=== PATIENT | female | born 1965 | race Caucasian/White ===

== ENCOUNTER 2020-10-13 13:38 | Emergency (ER) | payer OTHER ==
[2020-10-13 13:51] VITALS: BP 139/65
--- NOTE | 2020-10-13 14:56 | ED Physician Documentation ---
PD HPI OPHTHO - Stated complaint Stated Complaint: CHEMICAL IN EYE - Chief complaint Chief Complaint: Heent - History obtained from History obtained from: Patient - History of Present Illness Timing - onset: How many hours ago (2) Timing - duration: Hours (2) Timing - details: Abrupt onset Pain level max: 2 Pain level now: 1 Location: Left Quality / character: Burning Associated symptoms: Redness, Tearing, Discharge, FB sensation Contributing factors: No: Wears glasses, Wears contacts Recently seen: Not recently seen - Additional information Additional information: Patient was using bar keepers friend cleaning powder today when it got in her eye. Flushed immediately with water for 15 minutes. She states it feels like there is something still in the eye. Consulted poison control who recommended evaluation in the ER. 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 - Present Medications Home Medications: Ambulatory Orders Medication Instructions Recorded Confirmed oxyCODONE/ACET 5/325 [Percocet 5 1 each PO Q4-6H PRN #15 tablet 04/24/15 mg/325 mg] - Allergies Allergies/Adverse Reactions: Allergies Allergy/AdvReac Type Severity Reaction Status Date / Time No Known Drug Allergies Allergy Verified 10/13/20 13:51 - Social History Does the pt smoke?: Yes Smoking Status: Current every day smoker Does the pt drink ETOH?: Yes Does the pt have substance abuse?: No - Immunizations Immunizations are current?: Yes - POLST Patient has POLST: No PD ED PE NORMAL - Vitals Vital signs reviewed: Yes - General General: Alert and oriented X 3, No acute distress - HEENT HEENT: Moist mucous membranes, Other (Right eye is normal. Left eye has conjunctival injection and tearing. Small amount of discharge. Eyelids everted. No visible foreign bodies. No uptake of fluorescein.) - Neck Neck: Supple, no meningeal sign - Derm Derm: Warm and dry - Neuro Neuro: Alert and oriented X 3 - Psych Psych: Normal mood, Normal affect Results - Vitals Vitals: Vital Signs - 24 hr 10/13/20 13:47 Temperature 36.5 C Heart Rate 76 Respiratory 14 Rate Blood Pressure 139/65 H O2 Saturation 100 Oxygen O2 Source Room air PD MEDICAL DECISION MAKING - ED course Complexity details: considered differential, d/w patient ED course: 55-year-old female with a chemical exposure to the left eye. Proparacaine was instilled and the eye was irrigated again and the urgency department. It is at a normal pH on pH testing. No further foreign body sensation after irrigation. No corneal abrasion. No ulceration. No fluorescein uptake. We will have her continue supportive care and follow-up with her doctor. She does not wear contacts. Patient counseled regarding signs and symptoms for which I believe and urgent re-evaluation would be necessary. Patient with good understanding of and agreement to plan and is comfortable going home at this time This document was made in part using voice recognition software. While efforts are made to proofread this document, sound alike and grammatical errors may occur. Departure - Departure Disposition: 01 Home, Self Care Clinical Impression: Chemical exposure of eye Condition: Good Instructions: ED Chemical Conjunctivitis Follow-Up: Kerline Fernando PA [Primary Care Provider] - Comments: This should improve over the next few hours. Return for recheck tomorrow if you are still having symptoms. Follow-up with your doctor as needed for further care. Discharge Date/Time: 10/13/20 15:09
== END 2020-10-13 15:09 | disposition home or self-care (01) ==
LOC: ED 13:38
DX: H57.12 Ocular pain, left eye (principal); Z77.098 Contact with and (suspected) exposure to other hazardous, chiefly nonmedicinal, chemicals; F17.200 Nicotine dependence, unspecified, uncomplicated
CPT/HCPCS: 99281; 99284

== ENCOUNTER 2020-12-07 19:06 | Emergency (ER) | payer OTHER ==
--- OUTSIDE RECORDS SUMMARY | 2020-12-07 19:08 | EXTERNAL MEDICAL SUMMARY RPT | Continuity of Care Document ---
:1965 Demographics Phone Unavailable Preferred Language Unknown Marital Status Unknown Zoroastrianism Affiliation Unknown Race Unknown Ethnic Group Unknown Author Organization [facility] Address [address] [place] [address] Phone Social History date description facility [phone]
--- OUTSIDE RECORDS SUMMARY | 2020-12-07 19:17 | EXTERNAL MEDICAL SUMMARY RPT | Continuity of Care Document ---
:1965 Demographics Phone Unavailable Preferred Language Unknown Marital Status Unknown Jainism Affiliation Unknown Race Unknown Ethnic Group Unknown Author Organization [facility] Address [address] [id number] Phone Social History date description facility [phone]
[2020-12-07] MEDS ORDERED: IBUPROFEN 600 MG TABLET PO STA (21:26)
[2020-12-07] MEDS ORDERED: cephALEXin 250 MG CAPSULE PO STA (21:26)
--- NOTE | 2020-12-07 21:29 | ED Physician Documentation ---
History of Present Illness - Stated complaint Stated Complaint: LT BREAST PX/REDNESS - Chief complaint Chief Complaint: Wound - Additonal information Additional information: 55-year-old female presents the emergency department for evaluation of acute left breast pain and erythema. She reports that this a.m. she woke up with left breast tenderness. She did go to her primary care provider who did a full breast exam and recommended a mammogram. However since the exam at the primary care office she has developed progressive swelling some mild erythema and increased tenderness of the left breast. She has also had some subjective chills nausea and low-grade temperature elevation of 100.3. Patient is 55 years old has never had a mammogram. No personal or family history of breast cancer. Patient did breast-feed 3 children. She has not had any nipple drainage history of trauma to this breast. Review of Systems Constitutional: reports: Fever, Chills Eyes: reports: Reviewed and negative Ears: reports: Reviewed and negative Throat: denies: Dental pain / toothache, Oral lesions / sores, Sore throat, Swollen tonsils, Swallowed foreign body, Reviewed and negative, Other Cardiac: reports: Reviewed and negative Respiratory: reports: Reviewed and negative GI: reports: Reviewed and negative : reports: Reviewed and negative Skin: reports: Other (left breast swelling, erythema laterally) Neurologic: reports: Generalized weakness PD PAST MEDICAL HISTORY - Past Medical History Past Medical History: Yes - Past Surgical History Past Surgical History: Yes 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 - Present Medications Home Medications: Ambulatory Orders Medication Instructions Recorded Confirmed cephALEXin [Keflex] 500 mg PO Q6H #28 12/07/20 traMADol [Ultram] 50 mg PO Q4-6H PRN 12/07/20 12/07/20 - Allergies Allergies/Adverse Reactions: Allergies Allergy/AdvReac Type Severity Reaction Status Date / Time No Known Drug Allergies Allergy Verified 12/07/20 19:25 - Social History Does the pt smoke?: Yes Smoking Status: Current every day smoker Does the pt drink ETOH?: Yes Does the pt have substance abuse?: No - Immunizations Immunizations are current?: Yes - POLST Patient has POLST: No PD ED PE EXPANDED - General General: Alert, In Pain - Cardiac Cardiac: Regular Rate, Radial strong equal, Pedal strong equal, Cap refill < 2 sec, Prolonged cap refill - Respiratory Respiratory: Clear to ausultation jag. No: Distress, Labored - Abdomen Abdomen: Normal Bowel sounds, Tender to palpation - GCS Eye Opening: Spontaneous Motor: Obeys Commands Verbal: Oriented Total: 15 - Free text exam Free text exam: Left breast with moderate erythema induration tenderness and swelling from the areola superior to about 2:00 and down to about 5:00. no nipple drainage. no axillary LAD. no mass appreciated Results - Vitals Vitals: Vital Signs - 24 hr 12/07/20 19:22 Temperature 37.2 C Heart Rate 85 Respiratory 16 Rate Blood Pressure 115/67 O2 Saturation 100 Oxygen O2 Source Room air - Labs Labs: Laboratory Tests 12/07/20 12/07/20 21:45 21:45 WBC 7.9 RBC 3.96 L Hgb 12.6 Hct 38.4 MCV 97.0 MCH 31.8 H MCHC 32.8 RDW 12.5 Plt Count 225 MPV 9.6 Neut # (Auto) 5.2 Lymph # (Auto) 1.7 Stephenson # (Auto) 0.8 Eos # (Auto) 0.1 Baso # (Auto) 0.0 Absolute Nucleated RBC 0.00 Nucleated RBC % 0.0 Sodium 139 Potassium 3.9 Chloride 104 Carbon Dioxide 27 Anion Gap 8.0 BUN 14 Creatinine 0.6 Estimated GFR (MDRD) 103 Glucose 99 Calcium 9.0 - Rads (name of study) left breast ultrasound Radiology: See rad report, Other (Per orthopedic tech: Hypoechoic areas in the left lateral breast. No focal fluid collection identified.) PD MEDICAL DECISION MAKING - ED course Complexity details: reviewed results, re-evaluated patient, d/w patient ED course: 55-year-old female presents emergency department for evaluation of acute left breast pain redness and swelling that began this morning. She had associated fever and chills this afternoon with a T-max of 100.3. Screening CBC and electrolytes do not reveal any leukocytosis or acute abnormality. On exam she does have redness and swelling laterally of the breast. There is no nipple drainage or discharge. We did do an ultrasound and no localized fluid collection was seen. We will discharge her with a presumptive diagnosis of acute mastitis. A total prescription for 9 days of Keflex was 11. Patient is advised to do warm compress 2-3 times a day as well as ibuprofen for discomfort. Patient understands that as an outpatient when localized infection has resolved she should complete mammogram screening. Departure - Departure Disposition: 01 Home, Self Care Clinical Impression: Mastitis of left breast unrelated to or Condition: Stable Record reviewed to determine appropriate education?: Yes Instructions: ED Breast Infec Follow-Up: Kerline Fernando PA [Primary Care Provider] - Prescriptions: cephALEXin [Keflex] 500 mg PO Q6H #28 Comments: Jenna kearney were seen in the emergency department today for acute left breast swelling and pain with some associated chills, fevers and redness. Your screening labs were unremarkable. We did do an ultrasound of the breast tissue at the bedside. At this time we do not see a fluid collection to suggest abscess formation. I would like you to fill the prescription for the Keflex tomorrow and begin taking as directed 4 times a day for total of 9 days. You are be given a Keflex prepack tonight that we will have a 2-day prescription. I am also prescribing you a prepack of hydrocodone to help with pain and discomfort. Do not drive if taking this. Please place a warm compress over the left breast for 10 minutes 3 times a day. When that the infection resolves I would like you to ensure that you do have a mammogram screening completed. At your age mammogram is important to evaluate for breast cancer.
[2020-12-07 21:51] LABS: BASOPHILS % (AUTO) 0.5 %; EOSINOPHILS # (AUTO) 0.1 10^3/uL (0.0-0.7); HCT - HEMATOCRIT 38.4 % (37.0-47.0); HGB - HEMOGLOBIN 12.6 g/dL (12.0-16.0); LYMPHOCYTES # (AUTO) 1.7 10^3/uL (1.5-3.5); MEAN CORPUSCULAR HEMOGLOBIN 31.8 pg (27.0-31.0); MEAN CORPUSCULAR HGB CONC 32.8 g/dL (32.0-36.0); MEAN PLATELET VOLUME 9.6 fL (7.9-10.8); MONOCYTES # (AUTO) 0.8 10^3/uL (0.0-1.0); MONOCYTES % (AUTO) 9.9 %; NEUTROPHILS # (AUTO) 5.2 10^3/uL (1.5-6.6); NEUTROPHILS % (AUTO) 66.5 %; PLT - PLATELET COUNT 225 10^3/uL (130-450); RED BLOOD COUNT 3.96 10^6/uL (4.20-5.40); RED CELL DISTRIBUTION WIDTH 12.5 % (12.0-15.0); WHITE BLOOD COUNT 7.9 x10^3/uL (4.8-10.8)
[2020-12-07 22:02] LABS: CREATININE 0.6 mg/dL (0.4-1.0); POTASSIUM 3.9 mmol/L (3.5-5.0)
[2020-12-07] MEDS ORDERED: CEPHALEXIN 250 MG Prepack 8 CAP BOTTLE PO STA (22:28)
[2020-12-07] MEDS ORDERED: HYDROcod/ACET 5/325 Prepack 4 PO STA (22:29)
[2020-12-07 22:45] VITALS: BP 118/72
--- NOTE | 2020-12-08 08:50 | Ultrasound Report ---
PROCEDURE: Breast Unilateral Complete INDICATIONS: acute swelling, erythema; ? mastitis vs abscess TECHNIQUE: Real-time focused scanning was performed of the left breast(s), with image documentation and color Do ppler interrogation. COMPARISON: None. FINDINGS: Edema and hyperemic appearance of the entire breast. There is heterogeneous hypoechoic focus with are as of anechoic appearance measuring 2.8 x 2.1 x 2.0 cm and 1:00 and 2:00 position, 1 cm from the nipp le. There are dilated ducts, with periductal hyperemia. IMPRESSION: Diffuse mastitis. Ill-defined hypoechoic/anechoic region measuring up to 2.8 cm seen at the 1-2:00 po sition 1 cm from the nipple. A discrete abscess is not sonographically identified. Recommend follow-u p to document resolution after treatment and exclude underlying malignancy. Ductal ectasia with adjacent mastitis. BIRADS 3. Ultrasound, and if necessary mammographic, follow up recommended in 6 weeks after treatment . Findings are concordant with the preliminary study interpretation provided at the time of the study . Reviewed by: Romero Flores MD on 12/08/2020 8:48 AM PDT Approved by: Romero Flores MD on 12/08/2020 8:48 AM PDT Station ID: [id number]
== END 2020-12-07 22:43 | disposition home or self-care (01) ==
LOC: ED 19:06
DX: N61.0 Mastitis without abscess (principal); F17.200 Nicotine dependence, unspecified, uncomplicated
CPT/HCPCS: 36415; 76641; 80048; 85025; 99284; A9270

== ENCOUNTER 2021-02-06 11:13 | Outpatient (CLI) | payer OTHER ==
--- NOTE | 2021-02-07 12:21 | Mammography Report ---
BILATERAL DIGITAL DIAGNOSTIC MAMMOGRAM 3D/2D: 02/06/2021 CLINICAL: Diffuse left breast pain. Diffuse left breast pain. Follow-up left breast mastitis. Baselin e exam. Comparison is made to exam dated: 12/07/2020 ultrasound - [facility]. There are sc attered fibroglandular elements in both breasts. There is a possible irregular high density mass with an obscured, spiculated, and indistinct margin i n the left breast at 1 o'clock anterior depth. There is architectural distortion associated with the mass. No other significant masses, calcifications, or other findings are seen in either breast. IMPRESSION: INCOMPLETE: NEEDS ADDITIONAL IMAGING EVALUATION The possible irregular high density mass in the left breast is indeterminate. An ultrasound is recom mended. This exam was interpreted at Station ID: [id number]. NOTE: For mammograms, a report in lay terms will be sent to the patient. Approximately 15% of breast malignancies will not be visualized mammographically. In the management of a palpable breast mass, a negative mammogram must not discourage biopsy of a clinically suspicious lesion. Electronically Signed By: Jarvis Mukherjee M.D. jr/:02/06/2021 13:22:17 ACR BI-RADS Category 0: Incomplete 3340F PARENCHYMAL PATTERN: (A) - The breast(s) demonstrate(s) scattered fibroglandular densities. BI-RADS CATEGORY: (0) - 0 Ultrasound [id number] Immediate follow-up LATERALITY: (B)
--- NOTE | 2021-02-07 12:21 | Ultrasound Report ---
LIMITED ULTRASOUND OF LEFT BREAST: 02/06/2021 CLINICAL: Patient returns today to evaluate an architectural distortion in the left breast. Palpable left breast lump. Comparison is made to exams dated: 02/06/2021 mammogram and 12/07/[address] - [facility]. Color flow and real-time ultrasound of the left breast 11-2 o'clock region were performed. Conroy sca le images of the real-time examination were reviewed. There is an irregular solid mass in the left breast at 12 o'clock middle depth. This irregular solid mass is hypoechoic but of mixed echogenicity with no posterior acoustic shadowing or enhancement. C olor flow imaging demonstrates that there is increased vascularity. IMPRESSION: SUSPICIOUS OF MALIGNANCY The irregular solid mass in the left breast is suspicious of malignancy. An ultrasound guided biopsy is recommended. It is important to note that the mass seen on ultrasound may not precisely correlat e in position with the suspicious architectural distortion seen on mammogram. The post-biopsy images should be scrutinized to ensure that the biopsy clip/marker corresponds on position to the architectu ral distortion, otherwise a separate stereotactic biopsy may be needed. This exam was interpreted at Station ID: [id number]. Electronically Signed By: Jarvis Mukherjee M.D. jr/:02/06/2021 13:27:37 Ultrasound BI-RADS: 4 Suspicious for malignancy BI-RADS CATEGORY: (4) - 4 None [id number] Immediate follow-up LATERALITY: ()
== END 2021-02-06 11:14 | disposition home or self-care (01) ==
LOC: DI 11:13
PROVIDERS: ATTEND Nurse Practitioner Family
DX: N64.4 Mastodynia (principal); N63.21 Unspecified lump in the left breast, upper outer quadrant

== ENCOUNTER 2021-02-09 12:40 | Outpatient (CLI) | payer OTHER ==
[2021-02-09] MEDS ORDERED: LIDOCAINE MPF 1%-EPI 1:200000 30 ML VIAL ONE (12:45)
[2021-02-09] MEDS ORDERED: BUFFERED LIDOCAINE 10 ML SYRINGE ONE (12:45)
--- NOTE | 2021-02-09 16:27 | Ultrasound Report ---
PROCEDURE: Breast Unilateral Limited INDICATIONS: ABNORMAL MAMMO LT BREAST TECHNIQUE: Real-time focused scanning was performed of the left breast(s), with image documentation. COMPARISON: 02/06/2021 diagnostic breast ultrasound. FINDINGS: Previously identified lesion in the left breast is not identified in the current study. Re al-time imaging from the 12 to 2:00 position left breast demonstrated prominent ducts, soft tissue ed cirilo and increased vascularity highly suggestive of mastitis. Patient reported tenderness in the regio n of the sonographic abnormality. IMPRESSION: 1. Previously identified lesion in the left breast not identified in the current study. Ultrasound gu ided biopsy was canceled. 2. Inflammation and increased vascularity with tenderness noted in the 12-2:00 position of the left b reast changes highly suspicious for mastitis. No abscess identified. 3. Following appropriate therapy for mastitis and given lack of definite sonographic abnormality in t he current study, stereotactic biopsy of area of architectural distortion in the left breast should b e performed. Findings and recommendations discussed with patient's provider Carmen Aceves and with the patient o n 02/09/2021. BIRADS: 4 Reviewed by: Esther Hoffmann MD, PhD on 02/09/2021 4:25 PM PDT Approved by: Esther Hoffmann MD, PhD on 02/09/2021 4:25 PM PDT Station ID: [id number]
== END 2021-02-09 12:41 | disposition home or self-care (01) ==
LOC: DI 12:40
PROVIDERS: ATTEND Physician Assistant
DX: R92.8 Other abnormal and inconclusive findings on diagnostic imaging of breast (principal)

== ENCOUNTER 2021-05-19 16:47 | Outpatient (CLI) | payer OTHER ==
[2021-05-19 20:25] LABS: BASOPHILS % (AUTO) 0.7 %; EOSINOPHILS # (AUTO) 0.1 10^3/uL (0.0-0.7); EOSINOPHILS % (AUTO) 2.3 %; HCT - HEMATOCRIT 41.5 % (37.0-47.0); HGB - HEMOGLOBIN 13.1 g/dL (12.0-16.0); LYMPHOCYTES # (AUTO) 2.7 10^3/uL (1.5-3.5); LYMPHOCYTES % (AUTO) 47.3 %; MEAN CORPUSCULAR HEMOGLOBIN 31.5 pg (27.0-31.0); MEAN CORPUSCULAR HGB CONC 31.6 g/dL (32.0-36.0); MEAN CORPUSCULAR VOLUME 99.8 fL (81.0-99.0); MEAN PLATELET VOLUME 10.1 fL (7.9-10.8); MONOCYTES # (AUTO) 0.5 10^3/uL (0.0-1.0); MONOCYTES % (AUTO) 7.9 %; NEUTROPHILS # (AUTO) 2.4 10^3/uL (1.5-6.6); NEUTROPHILS % (AUTO) 41.6 %; PLT - PLATELET COUNT 296 10^3/uL (130-450); RED BLOOD COUNT 4.16 10^6/uL (4.20-5.40); RED CELL DISTRIBUTION WIDTH 12.3 % (12.0-15.0); WHITE BLOOD COUNT 5.7 x10^3/uL (4.8-10.8)
[2021-05-19 20:30] LABS: ALBUMIN 4.9 g/dL (3.2-5.5); ALBUMIN/GLOBULIN RATIO 2.3 (1.0-2.2); BILIRUBIN,TOTAL 0.7 mg/dL (0.2-1.0); CREATININE 0.7 mg/dL (0.4-1.0); POTASSIUM 4.5 mmol/L (3.5-5.0)
== END 2021-05-19 16:48 | disposition home or self-care (01) ==
LOC: LAB.S 16:47
PROVIDERS: ATTEND Physician Assistant
DX: Z01.812 Encounter for preprocedural laboratory examination (principal)
CPT/HCPCS: 36415; 80053; 85025

== ENCOUNTER 2021-06-03 21:34 | Emergency (ER) | payer OTHER ==
[2021-06-03] MEDS ORDERED: oxyCODONE 5 MG TABLET PO STA (21:54)
[2021-06-03 23:53] LABS: BASOPHILS # (AUTO) 0.1 10^3/uL (0.0-0.1); BASOPHILS % (AUTO) 0.5 %; EOSINOPHILS # (AUTO) 0.1 10^3/uL (0.0-0.7); EOSINOPHILS % (AUTO) 0.6 %; HCT - HEMATOCRIT 38.7 % (37.0-47.0); HGB - HEMOGLOBIN 12.7 g/dL (12.0-16.0); LYMPHOCYTES # (AUTO) 1.2 10^3/uL (1.5-3.5); LYMPHOCYTES % (AUTO) 10.9 %; MEAN CORPUSCULAR HEMOGLOBIN 32.3 pg (27.0-31.0); MEAN CORPUSCULAR HGB CONC 32.8 g/dL (32.0-36.0); MEAN CORPUSCULAR VOLUME 98.5 fL (81.0-99.0); MEAN PLATELET VOLUME 9.1 fL (7.9-10.8); MONOCYTES # (AUTO) 1.2 10^3/uL (0.0-1.0); MONOCYTES % (AUTO) 11.1 %; NEUTROPHILS # (AUTO) 8.4 10^3/uL (1.5-6.6); NEUTROPHILS % (AUTO) 76.5 %; PLT - PLATELET COUNT 290 10^3/uL (130-450); RED BLOOD COUNT 3.93 10^6/uL (4.20-5.40); RED CELL DISTRIBUTION WIDTH 12.2 % (12.0-15.0)
--- NOTE | 2021-06-04 | Ultrasound Report ---
PROCEDURE: Breast Unilateral Complete INDICATIONS: left breast pain, swelling TECHNIQUE: Real-time focused scanning was performed of the left breast(s), with image documentation and color Do ppler interrogation. COMPARISON: None. FINDINGS: Drainage tube noted in the soft tissues of the left breast compatible with recent mastectomy. There i s edema in the region of the mastectomy. No abscess identified. IMPRESSION: Soft tissue edema in the region of left breast mastectomy which could be related to recent surgery or infectious cellulitis. No abscess. BIRADS 1 Reviewed by: Esther Hoffmann MD, PhD on 06/03/2021 11:59 PM PDT Approved by: Esther Hoffmann MD, PhD on 06/03/2021 11:59 PM PDT Station ID: [id number]
--- NOTE | 2021-06-04 00:51 | ED Physician Documentation ---
History of Present Illness - Stated complaint Stated Complaint: POST OP PX - Chief complaint Chief Complaint: General - History obtained from History obtained from: Patient - Additonal information Additional information: 48-year-old woman presents status post L mastectomy 8 days ago at [facility] [address] with [address] Johnson. Patient is having pain to the breast and some increased swelling. denies fevers. ANDREI drain put out 80cc today serous fluid today which is c/w prior output. 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 - Present Medications Home Medications: Ambulatory Orders Medication Instructions Recorded Confirmed Oxycodone HCl/Acetaminophen 1 each PO Q4H PRN #10 tablet 06/04/21 [Percocet 10-325 mg Tablet] cephALEXin [Keflex] 500 mg PO Q6H #28 06/04/21 - Allergies Allergies/Adverse Reactions: Allergies Allergy/AdvReac Type Severity Reaction Status Date / Time No Known Drug Allergies Allergy Verified 06/04/21 08:19 - Social History Does the pt smoke?: Yes Smoking Status: Former smoker Does the pt drink ETOH?: No Does the pt have substance abuse?: No - Immunizations Immunizations are current?: Yes - POLST Patient has POLST: No PD ED PE NORMAL - Vitals Vital signs reviewed: Yes - General General: Alert and oriented X 3, No acute distress, Well developed/nourished - HEENT HEENT: Atraumatic, PERRL, EOMI - Neck Neck: Supple, no meningeal sign - Cardiac Cardiac: RRR - Respiratory Respiratory: No respiratory distress, Clear bilaterally - Abdomen Abdomen: Non tender, Non distended - Derm Derm: Other (L breast with mild swelling to 2 oclock position. ANDREI drain with serous drainage. no cellulitis. wound site is healing well. bandage clean. ) Results - Vitals Vitals: Oxygen O2 Source Room air - Labs Labs: Microbiology 06/03/21 00:00 Blood Culture - Preliminary Blood NO GROWTH AFTER 1 DAY 06/03/21 23:38 Blood Culture - Preliminary Blood NO GROWTH AFTER 1 DAY 06/04/21 01:25 Wound Culture - Preliminary Breast - Left Laboratory Tests 06/03/21 06/03/21 06/04/21 23:38 23:38 01:25 WBC 11.0 H RBC 3.93 L Hgb 12.7 Hct 38.7 MCV 98.5 MCH 32.3 H MCHC 32.8 RDW 12.2 Plt Count 290 MPV 9.1 Neut # (Auto) 8.4 H Lymph # (Auto) 1.2 L Rhea # (Auto) 1.2 H Eos # (Auto) 0.1 Baso # (Auto) 0.1 Absolute Nucleated RBC 0.00 Nucleated RBC % 0.0 Lactic Acid 0.7 Fluid Source BREAST SEROUS FLUID Fluid Color STRAW Fluid Clarity CLOUDY Fluid WBC 3214 Fluid RBC 88440 Fluid Neutrophils % 43 Fluid Lymphocytes % 53 Fluid Monocytes % 4 PD MEDICAL DECISION MAKING - ED course ED course: d/w Dr. [place], inhalation therapist surgeon and partner of Dr. Johnson in regards to pain. Given her lack of fever, normal lactic acid, and only mild leukocytosis, patient has low likelihood of wound site infection at this time but we will give short term course of keflex as a precaution. Surgeon advised to keep wound drain in. She will be given a follow up appointment for this week. They will call tomorrow to schedule with her. I d/w the patient and provided strict return precautions. Departure - Departure Disposition: 01 Home, Self Care Clinical Impression: Visit for wound check, Post-mastectomy pain Condition: Good Instructions: ED Post Op Pain Prescriptions: cephALEXin [Keflex] 500 mg PO Q6H #28 Oxycodone HCl/Acetaminophen [Percocet 10-325 mg Tablet] 1 each PO Q4H PRN #10 tablet PRN Reason: Pain Comments: You were seen in the emergency department for a wound check. You likely do not have an infection but we are placing you on antibiotics per surgeon recommendations until you can be seen in clinic for a wound check. Please return to the emergency department if you are unable to get in to see your surgeon. They should be calling tomororw to schedule an appointment with you. Return also if you have any fever, new or worsening symptoms or other concerns. Apply warm compresses to the affected area as tolerated. Discharge Date/Time: 06/04/21 01:33
[2021-06-04] MEDS ORDERED: oxyCODONE/ACET 5/325 Prepack 4 PO STA (01:13)
[2021-06-04 01:33] VITALS: BP 103/60
[2021-06-04 01:52] LABS: CC,BF RBC 17000 /mm^3; CC,BF WBC 3214 /mm^3
[2021-06-04 01:53] LABS: BF CLARITY CLOUDY; BF COLOR STRAW; BF SOURCE BREAST SEROUS FLUID
[2021-06-04 02:15] LABS: LYMPHOCYTES %,BODY FLUID 53 %; MONOCYTES %,BODY FLUID 4 %; NEUTROPHILS %, BF 43 %
== END 2021-06-04 01:33 | disposition home or self-care (01) ==
LOC: ED 21:34
DX: G89.18 Other acute postprocedural pain (principal); Z90.12 Acquired absence of left breast and nipple; Z48.00 Encounter for change or removal of nonsurgical wound dressing; Z43.8 Encounter for attention to other artificial openings
CPT/HCPCS: 36415; 76641; 83605; 85025; 87040; 87070; 87181; 87205; 89051; 99283; 99284; A9270

== ENCOUNTER 2021-06-04 08:11 | Emergency (ER) | payer OTHER ==
[2021-06-04] MEDS ORDERED: KETOROLAC 30 MG/ML VIAL IVP STA (08:56)
[2021-06-04] MEDS ORDERED: HYDROmorphone 1 MG/ML CARPUJECT IVP STA (08:56)
[2021-06-04] MEDS ORDERED: ceFAZolin 1 GM in SODIUM CHLORIDE 0.9% MINIBAG 100 ML IV STA (08:57)
--- NOTE | 2021-06-04 09:51 | ED Physician Documentation ---
History of Present Illness - Stated complaint Stated Complaint: FEVER/NAUSEA - Chief complaint Chief Complaint: Fever - History obtained from History obtained from: Patient - Additonal information Additional information: Patient returns emergency department chief complaint of fever after being seen here last night for breast redness and pain. The patient is 9 days status post left mastectomy, and has a ANDREI drain in place. She began to notice redness along the drain track a couple of days ago, though this did not extend all the way to the exit site. When she was seen yesterday, she had a slightly elevated white count, but no fever. The case was discussed by the emergency physician with the partner of the patient surgeon, who did not feel the patient was likely to have infection. However, as a precaution, Keflex was prescribed. Patient states she has not yet been able to pecan picker the Keflex, so has not had any antibiotics, as she states she was not given a dose yesterday in the ED. She states that the pain feels little worse and the redness looks a little worse than it did last night. She states that this morning is the first time she has had a fever throughout the process. No other complaints at this time. No drainage from the wound. No change in the appearance of the fluid in the drain bulb. Review of Systems Ten Systems: 10 systems reviewed and negative Constitutional: reports: Reviewed and negative Eyes: reports: Reviewed and negative Ears: reports: Reviewed and negative Nose: reports: Reviewed and negative Throat: reports: Reviewed and negative Cardiac: reports: Reviewed and negative Respiratory: reports: Reviewed and negative GI: reports: Reviewed and negative : reports: Reviewed and negative Skin: reports: Other (Redness, tenderness) Musculoskeletal: reports: Reviewed and negative Neurologic: reports: Reviewed and negative Psychiatric: reports: Reviewed and negative Endocrine: reports: Reviewed and negative Immunocompromised: reports: Reviewed and negative PD PAST MEDICAL HISTORY - Past Surgical History Past Surgical History: Yes 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 - Present Medications Home Medications: Ambulatory Orders Medication Instructions Recorded Confirmed Oxycodone HCl/Acetaminophen 1 each PO Q4H PRN #10 tablet 06/04/21 [Percocet 10-325 mg Tablet] cephALEXin [Keflex] 500 mg PO Q6H #28 06/04/21 - Allergies Allergies/Adverse Reactions: Allergies Allergy/AdvReac Type Severity Reaction Status Date / Time No Known Drug Allergies Allergy Verified 06/04/21 08:19 - Social History Does the pt smoke?: Yes Smoking Status: Former smoker Does the pt drink ETOH?: No Does the pt have substance abuse?: No - Immunizations Immunizations are current?: Yes - POLST Patient has POLST: No PD ED PE NORMAL - Vitals Vital signs reviewed: Yes - General General: Alert and oriented X 3, No acute distress, Well developed/nourished - HEENT HEENT: Atraumatic, PERRL, EOMI, Moist mucous membranes - Neck Neck: Supple, no meningeal sign - Cardiac Cardiac: RRR, No murmur, Strong equal pulses - Respiratory Respiratory: No respiratory distress, Clear bilaterally - Derm Derm: Warm and dry, Other (Surgical incisions on left breast clean dry and intact. ANDREI drain in place with blood-tinged, Clear fluid with sediment noted. No erythema at drain exit site. Drain palpable into her superior chest, at which point redness noted over the drain track without induration. 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 She had a fluctuant collection that was not indurated, and I was not certain whether this was a serous collection or infectious. The patient was given an IV dose of Ancef in the emergency department. She was also given Zofran for nausea and a dose of Dilaudid and Toradol. I have advised the patient to call her surgeon's office first thing tomorrow morning, which is Saturday. The patient has an appointment in 5 days, but I have discussed with her that I do not feel she should wait that long to be seen. She will pecan picker her Keflex immediately after this visit. Departure - Departure Disposition: 01 Home, Self Care Clinical Impression: Post-operative infection Qualifiers: Encounter type: initial encounter Postoperative infection type: unspecified type Qualified Code(s): T81.40XA - Infection following a procedure, unspecified, initial encounter Condition: Stable Instructions: ED Wound Infec After Surgery Comments: Please go straight to the pharmacy and pecan picker your antibiotics. You have been given an IV dose in the emergency department, as well as medication for pain and nausea. It is very important that you take all your doses of antibiotics today and every day until the course is complete. Please call your surgeon's office first thing in the morning to see if you can get an appointment in the next couple of days for a check. You may take ibuprofen 600mg every 6 hours, and Tylenol 650 mg every 4 hours, as needed for fever.
[2021-06-04] MEDS ORDERED: ONDANSETRON 4 MG/2 ML VIAL IVP STA (09:55)
[2021-06-04 10:42] VITALS: BP 107/54
== END 2021-06-04 11:04 | disposition home or self-care (01) ==
LOC: ED 08:11
DX: T81.49XA Infection following a procedure, other surgical site, initial encounter (principal); Y83.8 Other surgical procedures as the cause of abnormal reaction of the patient, or of later complication, without mention of misadventure at the time of the procedure; Z87.891 Personal history of nicotine dependence
CPT/HCPCS: 96365; 96375; 99284; J1170

== ENCOUNTER 2021-07-23 08:00 | Outpatient (CLI) | payer OTHER | END 2021-07-23 23:59 | disposition home or self-care (01) | LOC: LAB.S 08:00 | PROVIDERS: ATTEND Physician Assistant | DX: J06.9 Acute upper respiratory infection, unspecified (principal); Z20.822 Contact with and (suspected) exposure to COVID-19 ==

== ENCOUNTER 2021-12-29 13:56 | Outpatient (CLI) | payer OTHER ==
--- NOTE | 2021-12-29 15:41 | XRAY Report ---
PROCEDURE: Ankle 3 View RT INDICATIONS: PAIN IN RIGHT ANKLE AND JOINTS OF RIGHT FOOT TECHNIQUE: 3 views of the ankle were acquired. COMPARISON: None FINDINGS: Bones: No fractures or dislocations. Ankle mortise is normally aligned. No suspicious bony lesions . Soft tissues: No tibiotalar joint effusion. Achilles tendon appears normal. IMPRESSION: Normal right ankle Reviewed by: Bennett Lai on 12/29/2021 3:39 PM PDT Approved by: Bennett Lai on 12/29/2021 3:39 PM PDT Station ID: [id number]
--- NOTE | 2021-12-29 15:42 | XRAY Report ---
PROCEDURE: Ankle 3 View LT INDICATIONS: PAIN IN LEFT ANKLE AND JOINTS OF LEFT FOOT TECHNIQUE: 3 views of the ankle were acquired. COMPARISON: None FINDINGS: Bones: No fractures or dislocations. Ankle mortise is normally aligned. No suspicious bony lesions . Soft tissues: No tibiotalar joint effusion. Achilles tendon appears normal. IMPRESSION: Normal left ankle Reviewed by: Bennett Lai on 12/29/2021 3:40 PM PDT Approved by: Bennett Lai on 12/29/2021 3:40 PM PDT Station ID: [id number]
[2021-12-29 20:06] LABS: BASOPHILS # (AUTO) 0.1 10^3/uL (0.0-0.1); BASOPHILS % (AUTO) 0.9 %; EOSINOPHILS # (AUTO) 0.1 10^3/uL (0.0-0.7); EOSINOPHILS % (AUTO) 1.7 %; HGB - HEMOGLOBIN 13.3 g/dL (12.0-16.0); LYMPHOCYTES # (AUTO) 2.2 10^3/uL (1.5-3.5); LYMPHOCYTES % (AUTO) 38.3 %; MEAN CORPUSCULAR HEMOGLOBIN 31.7 pg (27.0-31.0); MEAN CORPUSCULAR HGB CONC 32.4 g/dL (32.0-36.0); MEAN CORPUSCULAR VOLUME 97.6 fL (81.0-99.0); MEAN PLATELET VOLUME 10.3 fL (7.9-10.8); MONOCYTES # (AUTO) 0.4 10^3/uL (0.0-1.0); MONOCYTES % (AUTO) 6.4 %; NEUTROPHILS % (AUTO) 52.5 %; PLT - PLATELET COUNT 291 10^3/uL (130-450); RED CELL DISTRIBUTION WIDTH 12.5 % (12.0-15.0); WHITE BLOOD COUNT 5.8 x10^3/uL (4.8-10.8)
[2021-12-29 20:30] LABS: ALBUMIN 4.5 g/dL (3.2-5.5); ALBUMIN/GLOBULIN RATIO 1.6 (1.0-2.2); CALCIUM 9.7 mg/dL (8.5-10.3); CREATININE 0.8 mg/dL (0.4-1.0); POTASSIUM 4.5 mmol/L (3.5-5.0); TOTAL PROTEIN 7.4 g/dL (6.7-8.2)
== END 2021-12-29 13:57 | disposition home or self-care (01) ==
LOC: DI.S 13:56
PROVIDERS: ATTEND Physician Assistant
DX: M25.571 Pain in right ankle and joints of right foot (principal); M25.572 Pain in left ankle and joints of left foot; E07.9 Disorder of thyroid, unspecified; R42 Dizziness and giddiness
CPT/HCPCS: 36415; 80053; 84443; 85025; 86800

== ENCOUNTER 2023-04-22 11:21 | Outpatient (CLI) | payer OTHER ==
[2023-04-22 15:11] LABS: BASOPHILS % (AUTO) 0.8 %; EOSINOPHILS # (AUTO) 0.2 10^3/uL (0.0-0.7); HCT - HEMATOCRIT 42.1 % (37.0-47.0); HGB - HEMOGLOBIN 13.6 g/dL (12.0-16.0); LYMPHOCYTES # (AUTO) 1.6 10^3/uL (1.5-3.5); LYMPHOCYTES % (AUTO) 31.7 %; MEAN CORPUSCULAR HEMOGLOBIN 31.6 pg (27.0-31.0); MEAN CORPUSCULAR HGB CONC 32.3 g/dL (32.0-36.0); MEAN CORPUSCULAR VOLUME 97.7 fL (81.0-99.0); MEAN PLATELET VOLUME 10.1 fL (7.9-10.8); MONOCYTES # (AUTO) 0.3 10^3/uL (0.0-1.0); MONOCYTES % (AUTO) 6.6 %; NEUTROPHILS # (AUTO) 2.9 10^3/uL (1.5-6.6); NEUTROPHILS % (AUTO) 57.7 %; PLT - PLATELET COUNT 277 10^3/uL (130-450); RED BLOOD COUNT 4.31 10^6/uL (4.20-5.40); RED CELL DISTRIBUTION WIDTH 12.9 % (12.0-15.0)
[2023-04-22 16:02] LABS: ALBUMIN 4.5 g/dL (3.2-5.5); ALBUMIN/GLOBULIN RATIO 1.7 (1.0-2.2); BILIRUBIN,TOTAL 0.6 mg/dL (0.2-1.0); CREATININE 0.7 mg/dL (0.6-1.3); CRP - C-REACTIVE PROTEIN 0.6 mg/dL (<0.5); TOTAL PROTEIN 7.1 g/dL (6.4-8.9)
[2023-04-22 16:38] LABS: FERRITIN 13.7 ng/mL (11.0-306.8)
[2023-04-23 04:08] LABS: VITAMIN D 25-HYDROXY 59.3 ng/mL (30.0-100.0)
[2023-04-23 18:08] LABS: ANTINUCLEAR ANTIBODIES IFA Negative (.)
== END 2023-04-22 11:22 | disposition home or self-care (01) ==
LOC: LAB.S 11:21
DX: K75.4 Autoimmune hepatitis (principal); K74.3 Primary biliary cirrhosis; K83.01 Primary sclerosing cholangitis; R94.5 Abnormal results of liver function studies; L40.1 Generalized pustular psoriasis; Z85.3 Personal history of malignant neoplasm of breast; N95.1 Menopausal and female climacteric states; K73.1 Chronic lobular hepatitis, not elsewhere classified
CPT/HCPCS: 36415; 80053; 82306; 82728; 83090; 83540; 84466; 85025; 86038; 86140

== ENCOUNTER 2023-12-12 10:52 | Outpatient (CLI) | payer OTHER ==
--- NOTE | 2023-12-12 15:35 | DEXA Report ---
PROCEDURE: Dexa Spine and/or Hip INDICATIONS: LEFT BREAST DCIS TECHNIQUE: Dual energy x-ray absorptiometry (DXA) was performed on a built[employer]io System. Regions measur ed are the AP Spine, femoral neck, and if needed forearm. COMPARISON: None FINDINGS: Lumbar Spine: Bone Mineral Density: 0.921 g/cm/cm,T score: -2.2. Left Femoral Neck: Bone Mineral Density: 0.888 g/cm/cm, T score: -1.1. Left Hip: Bone Mineral Density: 0.897 g/cm/cm,T score: -0.9. (T score greater or equal to -1.0: NORMAL) (T score from -1.1 to -2.4: OSTEOPENIA) (T score less than or equal to -2.5 to: OSTEOPOROSIS) Impression: By WHO criteria, this patient has low bone density (osteopenia). Patients with diagnosis of osteoporosis or osteopenia should have regular bone mineral density assess ment. For those eligible for Medicare, routine testing is allowed once every 2 years. Testing frequ ency can be increased for patients who have rapidly progressing disease or for those who are receivin g medical therapy to restore bone mass. Reviewed by: Godfrey Bolanos MD on 12/12/2023 3:34 PM PDT Approved by: Godfrey Bolanos MD on 12/12/2023 3:34 PM PDT Station ID: [id number]
== END 2023-12-12 10:53 | disposition home or self-care (01) ==
LOC: DI 10:52
PROVIDERS: ATTEND Physician Assistant Medical
DX: M85.89 Other specified disorders of bone density and structure, multiple sites (principal)